=== PATIENT | male | born 1935 | race Caucasian/White ===

== ENCOUNTER 2018-06-07 16:36 | Emergency (ER) | payer OTHER ==
[~2018-06-07] VITALS: Ht 175.2 cm; Wt 86.2 kg
[~2018-06-07 16:36] MED LIST: AVALOX PO; AVELOX400 MG PO; CEFTAZIDIME IV; CIPRO 400400 MG/200 IV; CIPRO500 MG PO; FLAGYL I.V500 MG/100 IV; FLAGYL500 MG; FLORASTOR250 MG PO; HEPARIN5000 UNIT/ SC; HYDR12.5C PO; NKHM; OMEPRAZOLE40 MG PO; PERCOCET 325 MG1 TA2 PO; [UNRECOGNIZED DRUG - OTHER] PO
[2018-06-07 16:37] VITALS: BP 143/70
== END 2018-06-07 19:55 | disposition home or self-care (01) ==
LOC: ED 16:36
DX: S22.32XA Fracture of one rib, left side, initial encounter for closed fracture (principal); Z88.8 Allergy status to other drugs, medicaments and biological substances; Z79.899 Other long term (current) drug therapy; X58.XXXA Exposure to other specified factors, initial encounter; Y93.89 Activity, other specified; Y92.89 Other specified places as the place of occurrence of the external cause; Y99.8 Other external cause status

== ENCOUNTER 2022-01-24 12:36 | Emergency (ER) | payer OTHER ==
[~2022-01-24] VITALS: Wt 87.5 kg
[2022-01-24 12:57] LABS: BASO % 0.3 % (0.0-1.0); EOS % 0.2 % (1.0-4.0); LYMPH # 0.7 10*3/uL (1.3-4.4); LYMPH % 11.6 % (27.0-41.0); MEAN CELL VOLUME 99.4 fl (80.0-94.0); MEAN CORPUSCULAR HGB CONC 32.2 g/dl (33.0-37.0); MEAN PLATELET VOLUME 9.7 fl (9.6-12.3); MONO # 0.9 10*3/uL (0.1-1.0); MONO % 15.1 % (3.0-9.0); NEUT # 4.2 10*3/uL (2.3-7.9); NEUT % 72.5 % (47.0-73.0); PLATELET COUNT AUTOMATED 116 10*3/uL (130-400); RED BLOOD COUNT 3.62 10*6/uL (4.50-5.90); RED CELL DISTRI WIDTH 13.5 % (0-14.5); WHITE BLOOD COUNT 5.8 10*3/uL (4.8-10.8)
[2022-01-24 13:09] LABS: ACT PARTIAL THROMBO TIME 25.9 SECONDS (20.0-32.1); INTERNATIONAL NORM RATIO 1.1 (2.0-3.5)
[2022-01-24 13:23] LABS: ALKALINE PHOSPHATASE 33 U/L (45-117); BUN 20 mg/dl (7-24); CHLORIDE 111 mmol/L (98-107); CREATININE 1.35 mg/dL (0.70-1.30); POTASSIUM 3.8 mmol/L (3.5-5.1); SGOT/AST 23 IU/L (3-35); SGPT/ALT 28 U/L (12-78); SODIUM 141 mmol/L (136-145); TOTAL PROTEIN 6.5 gm/dL (6.4-8.2)
[2022-01-24 14:02] VITALS: BP 120/51
[2022-01-24 14:04] LABS: BILIRUBIN Negative (Negative); BLOOD Negative (Negative); CLARITY Clear (Clear); COLOR Yellow (Yellow); GLUCOSE Negative (Negative); KETONE Negative (Negative); LEUKO ESTERASE Negative (Negative); NITRITE Negative (Negative); UROBILINOGEN 0.2 E.U./dl (0.0-1.0)
[2022-01-24 14:14] LABS: BACTERIA TRACE
[2022-01-24 14:15] LABS: WBC 0-2 wbc/hpf (0-5)
== END 2022-01-24 16:29 | disposition home or self-care (01) ==
LOC: ED 12:36
PROVIDERS: Emergency Medicine
DX: U07.1 COVID-19 (principal); R50.9 Fever, unspecified; Z88.8 Allergy status to other drugs, medicaments and biological substances; Z79.899 Other long term (current) drug therapy; Z90.89 Acquired absence of other organs; Z98.890 Other specified postprocedural states

== ENCOUNTER → 2023-06-28 | Outpatient (CLI) | payer OTHER | END | disposition home or self-care (01) | LOC: RAD 10:34 | PROVIDERS: ATTEND Chiropractor | DX: M54.50 Low back pain, unspecified (principal); I70.0 Atherosclerosis of aorta ==

== ENCOUNTER 2023-11-27 17:59 | Emergency (ER) | payer OTHER ==
[~2023-11-27] VITALS: Ht 175.2 cm; Wt 81.6 kg
[2023-11-27 18:11] VITALS: BP 131/52
[2023-11-27] MEDS ORDERED: Tdap Vaccine 0.5 ML SYR (Adult Vaccine) IM ONE (18:15)
== END 2023-11-27 18:25 | disposition home or self-care (01) ==
LOC: ED 17:59
DX: S51.011A Laceration without foreign body of right elbow, initial encounter (principal); S50.311A Abrasion of right elbow, initial encounter; I10 Essential (primary) hypertension; Z88.8 Allergy status to other drugs, medicaments and biological substances; Z98.890 Other specified postprocedural states; W22.8XXA Striking against or struck by other objects, initial encounter; Y93.89 Activity, other specified; Y92.89 Other specified places as the place of occurrence of the external cause; Y99.8 Other external cause status